=== PATIENT | male | born 1950 | race Caucasian/White ===

== ENCOUNTER 2021-07-07 08:25 | Day surgery (SDC) | payer OTHER ==
--- NOTE | 2021-07-04 15:26 | RAD REPORT ---
EXAM DESCRIPTION: RAD - Chest Pa And Lat (2 Views) - 07/04/2021 3:13 pm CLINICAL HISTORY: PRE PROCEDURE SCREENING COMPARISON: Chest Pa And Lat (2 Views) dated 09/22/2018; CHEST PA AND LAT 2 VIEW dated 08/08/2013; CH EST PA AND LAT 2 VIEW dated 04/18/2009 FINDINGS: Lines: None. Lungs: No evidence of edema or pneumonia. Pleural: No significant pleural effusions or pneumothorax. Cardiac: The heart size is within normal limits. Bones: No acute fractures. Other: IMPRESSION: No acute cardiopulmonary disease.
[2021-07-04 15:38] LABS: Absolute Lymphocytes (CBC) 1.1 K/uL (0.7-4.9); Basophils % 0.2 % (0-1.3); Hematocrit 47.4 % (39.6-49.0); Lymphocytes % 8.2 % (15.3-44.8); MPV 8.2 fL (7.6-11.3); RBC Red Blood Cell Count 5.41 M/uL (4.33-5.43)
[2021-07-04 16:00] LABS: Bilirubin Direct 0.7 mg/dL (0-0.2); Bilirubin Total 1.4 mg/dL (0.2-1.0); Potassium 3.6 mmol/L (3.5-5.1)
[2021-07-04 16:42] LABS: Albumin 2.8 g/dL (3.4-5.0)
[2021-07-04 20:21] LABS: Blood Morphology Comment NOT SEEN (NOT SEEN); Platelet Estimate ADEQ; White Blood Cell Scan OK (OK)
[2021-07-07] MEDS ORDERED: CEFOXITIN/NS 1gm 1 GM/50 ML BAG ONE (08:45)
[2021-07-07] MEDS ORDERED: Ringers Lactate 1,000 ML IV ONE (08:45)
[2021-07-07] MEDS ORDERED: ALBUTEROL 2.5 MG/3 ML NEB SOL ONE (09:06)
[2021-07-07] MEDS ORDERED: propofoL 200 MG/20 ML VIAL IV ONE (09:11)
[2021-07-07] MEDS ORDERED: MIDAZOLAM HCL 2 MG/2 ML INJ ONE (09:12)
[2021-07-07] MEDS ORDERED: GLYCOPYRROLATE 0.2 MG/ML SYR ONE (09:12)
[2021-07-07] MEDS ORDERED: ONDANSETRON 4 MG/2 ML VIAL ONE (09:13)
[2021-07-07] MEDS ORDERED: FENTANYL CITR 250 MCG/5 ML ONE (09:13)
[2021-07-07] MEDS ORDERED: ROCURONIUM 50 MG/5 ML VIAL IV ONE (09:13)
[2021-07-07] MEDS ORDERED: dexAMETHasone 10 MG/ML VIAL ONE (09:16)
[2021-07-07] MEDS ORDERED: KETOROLAC 30 MG/ML INJ ONE (09:16)
[2021-07-07] MEDS ORDERED: LIDOCAINE JELLY 2%- 5 ML TUBE ONE (09:17)
[2021-07-07] MEDS ORDERED: LIDOCAINE 1% MPF 5 ML VIAL ONE (09:17)
[2021-07-07] MEDS ORDERED: EPHEDRINE SULF 50 MG/ML VIAL ONE (09:18)
[2021-07-07] MEDS ORDERED: SUCCINYLCHOLINE 20 MG/ML (10 ML) IV ONE (09:21)
--- NOTE | 2021-07-07 10:29 | P.BOP ---
Preoperative diagnosis: RUQ abd pain, acute cholecystitis, morbid obesity Postoperative diagnosis: same Primary procedure: Diagnostic laparoscopy Secondary procedure: Repair of umbilical hernia Behaviorist: GAGE COTTON (BANDING MACHINE OPERATOR) Estimated blood loss: <10cc Specimen: hernia sac Findings: dense tissue sourrounding dense hard gallbladder Anesthesia: General Complications: None Transferred to: Recovery Room Condition: Good
[2021-07-07 11:52] VITALS: BP 146/82; TEMP 97; O2SAT 92
--- NOTE | 2021-07-07 18:33 | EKG ---
Test Date: 2021-07-04 Test Time: 13:39:22 Instrument Adjuster: PAO MEASUREMENT RESULTS: Intervals: Rate: 85 RI: 156 QRSD: 92 QT: 386 QTc: 459 [place]: P: 38 RI: 156 QRS: -2 T: 44 INTERPRETIVE STATEMENTS: Sinus rhythm with occasional premature ventricular complexes Low voltage QRS Borderline ECG No previous ECG available for comparison Electronically Signed On 07-07-21 18:24:37 DESKTOP PUBLISHING SPECIALIST by Arian Ortiz
--- NOTE | 2021-07-09 12:36 | OP ---
Date of Procedure: 07/08/2021 Surgeon: Uriah Juarez MD Religion Department Chair: Blessing Gutierrez. Preoperative Diagnoses: Right upper quadrant abdominal pain, acute cholecystitis, morbid obesity, sy mptomatic cholelithiasis. Postoperative Diagnoses: Right upper quadrant abdominal pain, acute cholecystitis, morbid obesity, s ymptomatic cholelithiasis, umbilical hernia. Procedures: Diagnostic laparoscopy and repair of umbilical hernia. Estimated Blood Loss: Less than 10 mL. Specimen: Hernia sac. Anesthesia: General plus local. Findings: The patient has a hard area of the gallbladder and omentum, wrapping the area so tense wit h adhesions that the gallbladder cannot even be seen. There are some adhesions to the liver and to t he anterior abdominal wall. We cannot rule out tumor in that region now when we got diagnostic lap w ith ultrasound together to make conclusion. Complications: None. Indication: This is the case of a 71-year-old patient, who comes to us with above 4-year history of right upper quadrant pain, epigastric, on and off. He is trying to control his diet the best he can, but at this time this happened again. He went to a doctor who found possible cholecystitis, althoug h he cannot rule out adenomyosis of the gallbladder. The patient also has umbilical hernia. He unde rstands that the options of laparoscopic possible open cholecystectomy. He understands he is morbidl y obese and keeps waiting for this to come on and off may just once again complicated make the surgery more difficult or scar tissue. So, he opted to have the surgery done. The procedure wa s explained to him, laparoscopic possible open cholecystectomy and we are going to use the umbilical hernia as the insertion point. The benefits, alternatives, and risks fully explained, which include, but not limited to infection, bleeding, damage to adjacent structures, anesthesia complication, recu rrence of pain, MA, and even . He also understands this may not relieve any symptoms. He might need more than one surgical intervention. He understood, signed a consent. He wants to have surger y done as soon as possible. Procedure In Detail: The patient was brought to the operating room, placed in supine position. Anes thesia was done without complication. Abdominal area was prepped and draped in usual sterile fashion . Marcaine 0.5% was injected for local anesthetic followed by sharp incision of the skin in the leigh umbilical region. Incision was carried down to the umbilical area. We noticed a hernia sac present that was carefully removed from umbilical skin. Hernia sac also removed from the fascia. Fascial ed ges were cleaned and we used that opening to put Vicryl #1 inside the fascia. Ar trocar was care fully introduced. Pneumoperitoneum was obtained. There was a large amount of intraabdominal fat curtis t present. There was a large abdomen. We proceeded to place 3 more trocars under direct visualizati on in the right upper quadrant and proceeded with diagnostic laparoscopy to see the findings on the u ltrasound. The liver shows scar tissue and adhesions to the anterior abdominal wall. The area of om entum once was explored cannot even be removed from the area of the liver or the gallbladder. The et iology of that may be infectious, but the same time also may be consistent with tumor. We tried not to destroy the anatomy in that area. We understand that for him to have the surgery done, we might n eed to do open surgery, note only that we found that he had a tumor in that area, we believe he may b e better served in a place where the tumor of the gallbladder can be resected. For that reason, ____ to keep this in diagnostic laparoscopy, get more data and more consultants on the case for the possibility to address this issue in another way, so, that is why, I removed the cameras under direc t visualization. I did not disturb the area of the anatomy in that region because we did not want to disturb for the next surgeon coming in. We utilized at this time to take some pictures of the area, understood the situation with diagnostic lap and also repair his umbilical hernia. The trocars were removed under direct visualization. The umbilical fascia was closed with #1 Vicryl and #1 Prolene. Area was irrigated. Subcutaneous tissue closed with 3-0 chromic and the skin was approximated. Spo nge count and instrument counts correct. The patient tolerated the procedure well. The patient was sent to recove ry in stable condition. JOSE/ABIMAELL Voice ID: [id number] Report ID: [id number]
--- NOTE | 2021-07-09 12:39 | DS ---
Date of Discharge: 07/07/2021 Diagnoses: Right upper quadrant abdominal pain, acute cholecystitis, symptomatic cholelithiasis, mor bid obesity, intraabdominal adhesions, umbilical hernia. Procedures: Diagnostic laparoscopy, repair of umbilical hernia. Disposition: Home. Activity: As tolerated. No heavy lifting. Plan: Follow up in my office in 1 week. Call for appointment at [phone]. I brought his head of history when he is completely awake and explained to him these findings. We can proceed and see the best we can do or we can use this opportunity to understandably better his pathology and putting him in the ituation where he can be better served in case we find out that this is not just inflammation that th is could be a tumor of the gallbladder. He do agree with that. He want us to once again cool this d own a little bit with antibiotics and then I am going to make some phone calls and trying to get him into a most likely tertiary center where they can be prepared to deal with the tumor if they found on e. He understands the importance of losing weight and the importance of avoiding any greasy food and trying to diminish the chance of heart attack. The patient says he has been feeling like this for t he last 4 years. He knows how to we do not go there and try to commit for something that we might not be able to finish. For that reason, he will be discharged home on the antibiotics and w e will follow the patient in the next few days once we contact and get some alternatives for him. LIVE Voice ID: [id number] Report ID: [id number]
== END 2021-07-07 12:20 | disposition home or self-care (01) ==
LOC: OR 08:25
PROVIDERS: ATTEND Surgery
PROC: 0FJ04ZZ Inspection of Liver, Percutaneous Endoscopic Approach (ICD-10-PCS; 2021-07-07)
PROC: 0WQF4ZZ Repair Abdominal Wall, Percutaneous Endoscopic Approach (ICD-10-PCS; principal; 2021-07-07 09:45)
PROC: 0FJ44ZZ Inspection of Gallbladder, Percutaneous Endoscopic Approach (ICD-10-PCS; 2021-07-07 09:45)
DX: K42.9 Umbilical hernia without obstruction or gangrene (principal); R10.11 Right upper quadrant pain; K80.00 Calculus of gallbladder with acute cholecystitis without obstruction; E66.01 Morbid (severe) obesity due to excess calories; K66.0 Peritoneal adhesions (postprocedural) (postinfection); Z20.822 Contact with and (suspected) exposure to COVID-19
CPT/HCPCS: 93005; 85025; 80048; 36415; 82150; 80076; 88302; 83690; 71046; 49652; 49320; U0003; J2704; J0330; J2250; J3010; J1100; J7120; J0694; J2405